=== PATIENT | female | born 1985 | race African-American/Black ===

== ENCOUNTER → 2021-03-11 14:04 | Outpatient (CLI) | payer OTHER, BC, SELFPAY ==
--- NOTE | ~2021-03-11 | US_ITS ---
EXAMINATION: US OB <= 14 weeks fetus DATE: 03/11/2021 14:22 INDICATION: Verify gestational dates TECHNIQUE: Real-time transabdominal obstetric ultrasound. FINDINGS: No prior studies for comparison. The uterus measures 12.2 x 8.1 x 10 cm. There is an intrauterine gestational sac, with pole chad ntified. The crown rump length measures 7.35 cm, which correlates with a estimated gestational age o f 13 weeks 3 days. heart tones are identified measuring 154 BPM. The ovaries are within cary l limits. No free fluid in the pelvis. IMPRESSION: 1. SL IUP with an EGA of 13 weeks, 3 days (EDC by current ultrasound of 09/13/2021). Reviewed, dictated and finalized at location A. [facility] IMPRESSION: 1. SL IUP with an EGA of 13 weeks, 3 days (EDC by current ultrasound of 09/14/19 22).
== END ==
PROVIDERS: PCP Family Medicine; Visit Provider Obstetrics & Gynecology Gynecology
DX: Z34.91 Encounter for supervision of normal pregnancy, unspecified, first trimester (principal); Z3A.13 13 weeks gestation of pregnancy
CPT/HCPCS: 76801

== ENCOUNTER 2021-06-18 16:31 | Outpatient (RCR) | payer OTHER, BC, SELFPAY ==
[2021-06-18 17:58] LABS: Hematocrit 31.5 % (37.0-47.0); Hemoglobin 10.3 g/dL (12.0-15.0)
[2021-06-18 18:24] LABS: Vitamin D 25 Hydroxy 76.2 ng/mL
[2021-06-18 18:45] LABS: HIV 1/2 Ab P24 Ag Result Negative (Negative)
[2021-06-20 15:35] LABS: Glucose 1 Hour PP 50gm Dose 156 mg/dL
== END 2021-09-16 23:59 | disposition home or self-care (01) ==
LOC: ANHLAB 16:31
PROVIDERS: PCP Family Medicine; Visit Provider Obstetrics & Gynecology Gynecology
DX: Z11.4 Encounter for screening for human immunodeficiency virus [HIV] (principal); O36.0190 Maternal care for anti-D [Rh] antibodies, unspecified trimester, not applicable or unspecified; Z3A.00 Weeks of gestation of pregnancy not specified
CPT/HCPCS: 36415; 82306; 82947; 85014; 85018; 86703; G0432

== ENCOUNTER 2021-06-20 15:25 | Outpatient (RCR) | payer OTHER, BC, SELFPAY ==
[2021-06-20] MEDS: RHO(D) IMMUNE GLOBULIN 300 MCG/2 ML SYRINGE IM (15:55)
== END 2021-09-17 23:59 | disposition home or self-care (01) ==
LOC: ANHLAB 15:25
PROVIDERS: PCP Family Medicine; Visit Provider Obstetrics & Gynecology Gynecology
DX: Z29.13 Encounter for prophylactic Rho(D) immune globulin (principal); O36.0130 Maternal care for anti-D [Rh] antibodies, third trimester, not applicable or unspecified; Z3A.00 Weeks of gestation of pregnancy not specified
CPT/HCPCS: 36415; 85461; 90384; 96372; J2790

== ENCOUNTER 2021-09-08 16:25 | Inpatient (IN) | payer OTHER, BC, SELFPAY ==
[2021-09-08] VITALS (7 sets, daily range): BP systolic 93–112; BP diastolic 50–70; PULSE 77–99; RESP 18; TEMP 36.3–36.4; BMI 33.5
--- NOTE | 2021-09-08 17:12 | LDADM ---
This patient, Mika Matias, was admitted to Labor/Delivery/Recovery 107 on 09/08/21 at 16:25. Plans for labor, pain management and were discussed with patient. Patient/family oriented to hospital policies and general routines including ID bracelet, bed and alarms, visiting hours, pain management, procedures, bathroom and other care routines, personal items, smoking policy, room service/diet and guest tray routines, security routines, and visiting hours. Patient/Family are encouraged to report perceived risks to care and to ask questions if they do not understand what they are told or what they should do. See OBIX for further documentation.
[2021-09-08 17:14] LABS: Basophils Percent Auto 0.4 % (0.2-1.2); Eosinophils Absolute Auto 0.1 K/mm3 (0-0.3); Eosinophils Percent Auto 0.7 % (0-4.4); Hemoglobin 12.8 g/dL (12.0-15.0); Immature Granulocyte Absolute 0.08 K/mm3 (0.00-0.031); Lymphocytes Absolute Auto 1.28 K/mm3 (0.9-3.2); Lymphocytes Percent Auto 15.4 % (18.3-44.2); Mean Corpuscular HGB Conc 32.8 g/dl (32-36); Mean Corpuscular Hemoglobin 27.8 pg (26-34); Mean Corpuscular Volume 84.6 fl (80-100); Mean Platelet Volume 9.9 fl (7.4-10.4); Monocytes Absolute Auto 0.6 K/mm3 (0.1-0.6); Monocytes Percent Auto 6.6 % (2.6-8.5); Neutrophils Absolute Auto 6.3 K/mm3 (1.3-6.7); Neutrophils Percent Auto 75.9 % (45.5-73.1); Platelet Count Result 221 k/mm3 (150-375); Red Blood Count 4.61 M/mm3 (4.2-5.4); Red Cell Distribution Width 14.9 % (11.5-14.5); White Blood Count 8.3 K/mm3 (4.5-10.0)
[2021-09-08] MEDS: DINOPROSTONE 10 MG VAG INSERT VAGINAL (17:32)
[2021-09-08] MEDS: CALCIUM CARBONATE (TUMS) 500 MG (200 MG ELEMENTAL) PO (18:23)
[2021-09-08 21:55] LABS: Barbiturate Screen Urine Negative (Negative); Benzodiazepines Screen Urine Negative (Negative)
[2021-09-08 22:04] LABS: Amphetamine Screen Urine Negative (Negative); Cannabinoid Screen Urine Negative (Negative); Cocaine Screen Urine Negative (Negative); Methadone Screen Urine Negative (Negative); Opiate Screen Urine Negative (Negative); Phencyclidine Screen Urine Negative (Negative)
[2021-09-09] VITALS (66 sets, daily range): BP systolic 85–119; BP diastolic 40–71; PULSE 62–116; RESP 14–18; TEMP 36.1–37.4; O2SAT 93–100
[2021-09-09] MEDS: FAMOTIDINE 20 MG TABLET PO (00:50)
[2021-09-09] MEDS: LACTATED RINGERS 1,000 ML 125 ML IV CONT ×3 (02:14→06:20)
[2021-09-09] MEDS: AMPICILLIN 2 GM/NS 100 ML 2 GM/100 ML BAG IVPB (02:15)
[2021-09-09] MEDS: fentaNYL CITRATE INJ (*CRX) 100 MCG/2 ML VIAL 50 MCG IV PUSH ×2 (02:17→02:41)
[2021-09-09] MEDS: TERBUTALINE SULFATE 1 MG/ML VIAL 0.25 MG SUB-Q (05:24)
[2021-09-09] MEDS: AMPICILLIN 1 GM/NS 50 ML 1 GM/50 ML BAG IVPB (06:18)
--- NOTE | 2021-09-09 06:43 | WPDANESEPPF ---
Anes - Initial Pre Proc Eval Procedure: Primary C section Date/Time: 09/09/21 06:43 Surgeon: Dipika Esposito MD Pre Op Diagnosis: intolerance to labor Pre Op Diagnosis: iol Patient Data Age: 36 Gender: F Height: 1.55 m Weight: 80.4 kg Last Vital Signs Temp 36.6 C 09/09/21 02:02 Pulse 92 09/09/21 06:15 Resp 18 09/09/21 02:02 BP 94/51 L 09/09/21 06:15 O2 Del Method Room Air 09/08/21 17:12 Allergies Allergy/AdvReac Type Severity Reaction Status Date / Time No Known Allergies Allergy Verified 08/13/21 15:39 Home Medications Medication Instructions Recorded Confirmed Type aspirin 81 mg tablet 81 mg PO DAILY 08/13/21 08/13/21 History ergocalciferol (vitamin D2) 1,250 1,250 mcg PO [id number] 08/13/21 08/13/21 History mcg (50,000 unit) capsule (Vitamin D2) ferrous sulfate 325 mg (65 mg 325 mg PO DAILY 08/13/21 08/13/21 History iron) tablet prenat.vits,freedom,dfa-qdwr-cxqwt 1 tablet PO DAILY 08/13/21 08/13/21 History Laboratory Tests 09/08/21 09/08/21 09/08/21 17:07 17:07 17:07 WBC 8.3 K/mm3 K/mm3 (4.5-10.0) RBC 4.61 M/mm3 M/mm3 (4.2-5.4) Hgb 12.8 g/dL g/dL (12.0-15.0) Hct 39.0 % % (37.0-47.0) MCV 84.6 fl fl (80-100) MCH 27.8 pg pg (26-34) MCHC 32.8 g/dl g/dl (32-36) RDW 14.9 % H % (11.5-14.5) Plt Count 221 k/mm3 k/mm3 (150-375) MPV 9.9 fl fl (7.4-10.4) Immature Gran % (Auto) 1.0 % H % (0-0.5) Neut % (Auto) 75.9 % H % (45.5-73.1) Lymph % (Auto) 15.4 % L % (18.3-44.2) [place] % (Auto) 6.6 % % (2.6-8.5) Eos % (Auto) 0.7 % % (0-4.4) Baso % (Auto) 0.4 % % (0.2-1.2) Lymph # (Auto) 1.28 K/mm3 K/mm3 (0.9-3.2) [place] # (Auto) 0.6 K/mm3 K/mm3 (0.1-0.6) Eos # (Auto) 0.1 K/mm3 K/mm3 (0-0.3) Baso # (Auto) 0.0 K/mm3 K/mm3 (0.0-0.1) Abs Immat Gran (auto) 0.08 K/mm3 H K/mm3 (0.00-0.031) Absolute Neuts (auto) 6.3 K/mm3 K/mm3 (1.3-6.7) Absolute Nucleated RBC 0.0 K/mm3 K/mm3 (0.0-0.012) Nucleated RBC % 0.0 % % (0.0-0.2) Urine Opiates Screen Urine Methadone Screen Ur Barbiturates Screen Ur Phencyclidine Scrn Ur Amphetamine Screen U Benzodiazepines Scrn Urine Cocaine Screen U Cannabinoids Screen RPR Pending Blood Type O Negative Antibody Screen Negative 09/08/21 21:22 WBC RBC Hgb Hct MCV MCH MCHC RDW Plt Count MPV Immature Gran % (Auto) Neut % (Auto) Lymph % (Auto) [place] % (Auto) Eos % (Auto) Baso % (Auto) Lymph # (Auto) [place] # (Auto) Eos # (Auto) Baso # (Auto) Abs Immat Gran (auto) Absolute Neuts (auto) Absolute Nucleated RBC Nucleated RBC % Urine Opiates Screen Negative (Negative) Urine Methadone Screen Negative (Negative) Ur Barbiturates Screen Negative (Negative) Ur Phencyclidine Scrn Negative (Negative) Ur Amphetamine Screen Negative (Negative) U Benzodiazepines Scrn Negative (Negative) Urine Cocaine Screen Negative (Negative) U Cannabinoids Screen Negative (Negative) RPR Blood Type Antibody Screen Patient hx anesthesia problems: none Family hx anesthesia problems: none Results Review: All pre-operative results and documents have been reviewed as part of the pre-operative evaluation. [facility] Family History Family History (Updated 08/13/21 @ 15:43 by Nicholas Green RN) Grandparent Family history of rheumatoid arthritis Breast cancer in female Congestive heart failure Prostate carcinoma Lymphoma Father Hypertension Moth
[2021-09-09] MEDS: ceFAZolin 2 GM/D5W 50 ML 2 GM/50 ML BAG IVPB (06:55)
[2021-09-09] MEDS: diphenhydrAMINE HCl INJ 50 MG/ML VIAL 25 MG IV PUSH (07:58)
--- NOTE | 2021-09-09 08:04 | W.PM.PROC2 ---
Procedure Note - Detailed Date of Procedure 09/09/21 Pre-op Diagnosis intrauterine at 39 weeks intolerance of labor Post-op Diagnosis Same Procedure Performed primary low-transverse section Surgeon Dipika Esposito MD Anesthesia Spinal Findings male infant weighing 7lb 1oz with 9 and 9 Apgars; normal-appearing tubes ovaries and uterus; nuchal cord x1 reduced Description of Procedure the patient was taken to the operating room and placed under spinal anesthesia in the dorsal supine position with a leftward tilt. The patient was prepped and draped in the usual sterile fashion. Pfannenstiel skin incision was made with a scalpel and carried down to the underlying layer of fascia which was nicked in the midline. The fascial incision was extended laterally using Jones scissors. Bleeding vessels in the subcutaneous tissue are cauterized for hemostasis. Fascial edges were grasped with Ochsner was and tented while the fascia was dissected off the muscles. The rectus muscles were in the midline and the peritoneum tented and entered with Metzenbaum. The peritoneal incision was extended with blunt traction. The bladder blade is placed and the vesicouterine peritoneum tented and entered with Metzenbaum incision was extended laterally and the bladder flap created digitally. The bladder blade is replaced. The lower uterine segment was incised with a transverse fashion with the scalpel. The incision was extended laterally with blunt traction. The membranes were ruptured during this procedure and no fluid is noted at rupture. The head is fully delivered while the sales assistants and salespersons applied fundal pressure. The was fully delivered and a small amount of fluid is noted and clear. The cord is around the neck and reduced. The cord was clamped and cut the infant handed to the waiting nursery nurse. The placenta was removed using manual traction. The uterus was cleared of all clots and debris and exteriorized. The uterine incision was closed using 0 Monocryl in a running locked fashion. Same suture was used to imbricate. Two additional xqzyuk-pt-ybyah sutures are required near the left angle. Good hemostasis was then noted. The uterus is returned to the abdomen and the pelvis irrigated. The incision was again inspected noted to be hemostatic. The fascia was closed using 0 Vicryl in a running fashion. Subcutaneous tissues were irrigated and made hemostatic using Bovie cautery. Incision was closed using 4-0 Vicryl in a subcuticular fashion. Dermaflex was placed over the incision. Sponge, needle, and instrument counts are correct per the OR staff. Patient was given Ancef prior to skin incision. Estimated Blood Loss -890.0 Urine Output -200.0 Drains Yes ( Merlos catheter) Packing No Pathology Yes ( placenta) Complications No immediate complications Condition Stable Disposition Floor
--- NOTE | 2021-09-09 08:09 | PM.OBDSVD ---
DS: Admitting Diagnosis Discharge Date 09/12/21 Admitting Diagnosis induction of labor at 39 weeks DS: Discharge Diagnosis Discharge Diagnosis (1) intolerance to labor, delivered, current hospitalization: Code(s): O77.9 - Labor and delivery complicated by stress, unspecified Status: Acute (2) 39 weeks gestation of : Code(s): Z3A.39 - 39 weeks gestation of Status: Acute OB - DS: Summary OB Procedures : Ultrasound OB Procedures Intrapartum: low cervical, transverse OB Procedures: : None Peripartum Data Delivery Method: Section Procedures: Procedures Operation Date: 09/09/21 07:00 <No data on this case meets the specified criteria> Status at Discharge Functional status at discharge: independent ambulation Overall status at discharge: patient is progressing back to baseline Time Spent with Patient Time attestation: Total time spent providing and/or coordinating discharge services: DS: Data Data Completed and Pending Labs on day of discharge: Labs from last 24 hours 09/08/21 09/08/21 09/08/21 21:22 17:07 17:07 WBC RBC Hgb Hct MCV MCH MCHC RDW Plt Count MPV Immature Gran % (Auto) Neut % (Auto) Lymph % (Auto) [place] % (Auto) Eos % (Auto) Baso % (Auto) Lymph # (Auto) [place] # (Auto) Eos # (Auto) Baso # (Auto) Abs Immat Gran (auto) Absolute Neuts (auto) Absolute Nucleated RBC Nucleated RBC % Urine Opiates Screen Negative Urine Methadone Screen Negative Ur Barbiturates Screen Negative Ur Phencyclidine Scrn Negative Ur Amphetamine Screen Negative U Benzodiazepines Scrn Negative Urine Cocaine Screen Negative U Cannabinoids Screen Negative RPR Pending Blood Type O Negative Antibody Screen Negative 09/08/21 17:07 WBC 8.3 RBC 4.61 Hgb 12.8 Hct 39.0 MCV 84.6 MCH 27.8 MCHC 32.8 RDW 14.9 H Plt Count 221 MPV 9.9 Immature Gran % (Auto) 1.0 H Neut % (Auto) 75.9 H Lymph % (Auto) 15.4 L [place] % (Auto) 6.6 Eos % (Auto) 0.7 Baso % (Auto) 0.4 Lymph # (Auto) 1.28 [place] # (Auto) 0.6 Eos # (Auto) 0.1 Baso # (Auto) 0.0 Abs Immat Gran (auto) 0.08 H Absolute Neuts (auto) 6.3 Absolute Nucleated RBC 0.0 Nucleated RBC % 0.0 Urine Opiates Screen Urine Methadone Screen Ur Barbiturates Screen Ur Phencyclidine Scrn Ur Amphetamine Screen U Benzodiazepines Scrn Urine Cocaine Screen U Cannabinoids Screen RPR Blood Type Antibody Screen Discharge Plan Discharge Attending physician on discharge: Dipika Esposito Discharging Clinician: Dipika Esposito Anticipated Discharge Date/Time: 09/12/21 08:11 Patient Disposition: Home, Self-Care Activity: may shower, may drive after 2 weeks and pelvic rest Diet: regular Wound Care Instructions: incision open to air Patient Instructions: Antibiotic Form Stand Alone Forms: General Discharge Information Follow-up/Referrals: Dipika Esposito MD [Physician] - 1 Week ( and 6 weeks) Discharge Medications: New hydrocodone-acetaminophen 5-325 mg tablet 1 tablet PO Q4H PRN (Reason: pain) Qty: 20 0RF norethindrone (contraceptive) 0.35 mg tablet 0.35 mg PO DAILY Qty: 84 3RF Continued ferrous sulfate 325 mg (65 mg iron) Tablet 325 mg PO DAILY ergocalciferol (vitamin D2) [Vitamin D2] 1,250 mcg (50,000 unit) Capsule 1,250 mcg PO [id number] #[id number] Tablet 1 tablet PO DAILY Discontinued Adult Low Dose Aspirin 81 mg Tablet 81 mg PO DAILY Date of admission: 09/08/21 16:25 Primary Care Provider: Chante,Yolette Hernandez Admitting Provider: Dipika Esposito Attending physician on admission: Dipkia Esposito Condition: Stable
[2021-09-09] MEDS: OXYTOCIN 30 UNITS/NS 500 ML 30 UNITS/500 ML BAG 125 UNITS IV CONT (08:30)
[2021-09-09 09:11] LABS: Rapid Plasma Reagin Non-Reactive (NonReactive)
--- NOTE | 2021-09-09 10:19 | OBPPTRN ---
Patient transferred to post room #283 via stretcher. Support person present. Oriented to unit, room, information board, rooming in, admission packet and security measures. Patient verbalizes understanding.
[2021-09-09] MEDS: DEXTROSE 5%/0.45% SOD CHL 1,000 ML 125 ML IV CONT (13:02)
--- NOTE | 2021-09-09 16:02 | PC.NURSE ---
Addendum entered by Susie Cano RN 09/09/21 16:10: Mother denies discomfort with latched to the right breast. Original Note: [id number] Introductions were made, then consulted with patient to assess needs related to . Mother led the conversation with her experience feeding her so far. Mother works well with her infant and is demonstrating skin to skin with her infant unwrapped and placed vertically on her chest. Reviewed responsive feeding and how to watch for early feeding signs, frequency of feeding on demand about every 8-12 times in 24 hours (every 2-3 hours), milk production, duration of feeding, signs of adequate intake/output and how to record on the feeding sheet. Mother demonstrates understanding of hand expression and nipple stretching to stimulate milk production as her infant is sleepy and reluctant to show feeding cues at this time. Resources used to facilitate learning were used with the visual handouts/ tool/mom and baby guide. Mother voiced understanding of responsive feedings, stimulating with skin to skin, hand expressed colostrum, touch, talking to to encourage if it has been 2 -3 hours since the start of the last , to call if infant does not latch or there is discomfort with . Reported to the primary RN. 1515 blood sugar resulted at 51 with primary RN. [id number] Reviewed working with , breast, nipples and how to protect the nipples with an optimal deep latch, good positioning, and good hand washing. Encouraged understanding the benefits of skin to skin, responding to feeding cues, frequencies of feeding 8-12 times in 24 hours (approximately 2-3 hours), duration of feedings, milk production, intake/output feeding sheet and signs of adequate intake encouraging swallowing at the breast. Reviewed positioning and alignment, supporting breast, off-centered (asymmetrical latch) and leading with the chin with big open wide gape. latched optimally to the right breast in football position. Education given to mother of how to visualize effective sucking with rocking motion. sucks a few times, then pauses but no swallowing seen or heard at this time. Reviewed signs that is having good intake. was able to maintain latch without discomfort to mother. Nipple care reviewed with optimal latch and good positioning. Resources used to facilitate learning were used from the visual handouts/ tool/mom and baby guide. Mother voiced understanding of the education shared, calling for assistance if the infant does not latch or if there is discomfort with . Reported to the primary RN.
[2021-09-09] MEDS: IBUPROFEN 600 MG TABLET PO (22:03)
[2021-09-09] MEDS: HYDROcodone/acetaminophen (*CRX) 5-325 MG TABLET 1 TAB PO (22:04)
[2021-09-10] MEDS: IBUPROFEN 600 MG TABLET PO ×3 (04:44→23:56)
[2021-09-10] MEDS: SIMETHICONE 80 MG TAB.CHEW PO (04:44)
[2021-09-10] MEDS: HYDROcodone/acetaminophen (*CRX) 5-325 MG TABLET 1 TAB PO ×4 (04:44→23:56)
[2021-09-10 04:50] VITALS: BP 98/59; PULSE 77; RESP 18; TEMP 37.1
[2021-09-10 05:20] LABS: Basophils Absolute Auto 0.1 K/mm3 (0.0-0.1); Basophils Percent Auto 0.4 % (0.2-1.2); Eosinophils Absolute Auto 0.1 K/mm3 (0-0.3); Eosinophils Percent Auto 0.5 % (0-4.4); Hematocrit 32.9 % (37.0-47.0); Hemoglobin 10.6 g/dL (12.0-15.0); Immature Granulocyte Absolute 0.09 K/mm3 (0.00-0.031); Immature Granulocyte Percent A 0.7 % (0-0.5); Lymphocytes Percent Auto 13.2 % (18.3-44.2); Mean Corpuscular HGB Conc 32.2 g/dl (32-36); Mean Corpuscular Hemoglobin 27.6 pg (26-34); Mean Corpuscular Volume 85.7 fl (80-100); Monocytes Absolute Auto 1.1 K/mm3 (0.1-0.6); Monocytes Percent Auto 8.6 % (2.6-8.5); Neutrophils Absolute Auto 9.3 K/mm3 (1.3-6.7); Neutrophils Percent Auto 76.6 % (45.5-73.1); Platelet Count Result 190 k/mm3 (150-375); Red Blood Count 3.84 M/mm3 (4.2-5.4); Red Cell Distribution Width 14.9 % (11.5-14.5); White Blood Count 12.2 K/mm3 (4.5-10.0)
--- NOTE | 2021-09-10 07:24 | PM.OBPNVD ---
OB - PN: Subj Subjective Date/time seen: 09/10/21 07:24 Patient comments: no complaints and pain well controlled baby status: doing well OB - PN: Obj Data Labs CBC & Chem 7: 09/10/21 04:54 Labs: Laboratory Results - last 24 hr 09/08/21 09/10/21 17:07 04:54 WBC 12.2 H RBC 3.84 L Hgb 10.6 L Hct 32.9 L MCV 85.7 MCH 27.6 MCHC 32.2 RDW 14.9 H Plt Count 190 MPV 10.0 Immature Gran % (Auto) 0.7 H Neut % (Auto) 76.6 H Lymph % (Auto) 13.2 L [place] % (Auto) 8.6 H Eos % (Auto) 0.5 Baso % (Auto) 0.4 Lymph # (Auto) 1.60 [place] # (Auto) 1.1 H Eos # (Auto) 0.1 Baso # (Auto) 0.1 Abs Immat Gran (auto) 0.09 H Absolute Neuts (auto) 9.3 H Absolute Nucleated RBC 0.0 Nucleated RBC % 0.0 RPR Non-reactive OB - PN A/P Plan day: 1 Plan: routine care Time Spent With Patient Time: Total time spent is greater than 50% in coordination of care (as documented) at patient's floor/unit and/or counseling patient: Exam Narrative: inc c/d/i : Bimanual exam- vagina & uterus: other (Uterus firm, nt @U)
[2021-09-10 08:20] VITALS: BP 93/58; PULSE 75; RESP 16; TEMP 36.7; O2SAT 99
--- NOTE | 2021-09-10 08:54 | WPDANLDPN2 ---
Anes-Prog Note L&D Date/Time: 09/10/21 08:54 Comfortable throughout: section Neuraxial method: spinal Epidural/Spinal procedure site: clean & non-tender Neuro status: Neuro function grossly intact. Cardiovascular status: normal Respiratory status: normal Airway patency: baseline Mental status: baseline Post-Op hydration status: normal Vital Signs: Last Vital Signs Temp 37.1 C 09/10/21 04:50 Pulse 77 09/10/21 04:50 Resp 18 09/10/21 04:50 BP 98/59 L 09/10/21 04:50 Pulse Ox 100 09/09/21 16:00 O2 Del Method Room Air 09/10/21 08:00 Pain score (VAS): 3 I/O: Intake & Output 09/09/21 09/10/21 09/10/21 23:59 07:59 15:59 Intake Total 2050 1200 Output Total 1750 1200 Balance 300 0 Post-procedural complaints: none Patient feedback: Patient satisfied with anesthetic care.
--- NOTE | 2021-09-10 08:54 | WPDANLDNPN2 ---
Anes-Prog Note L&D-Neuraxial Date/Time: 09/10/21 08:54 Neuraxial medications: epidural PF morphine Opiod-related complaints: none Patient feedback: Patient satisfied with post-operative pain management.
[2021-09-10] MEDS: DOCUSATE SODIUM 100 MG CAPSULE PO ×2 (12:15→17:02)
[2021-09-10] MEDS: MULTIVIT/MIN/PREN/FOL AC/IRON TABLET 1 TAB PO (12:15)
--- NOTE | 2021-09-10 13:40 | PC.NURSE ---
[id number] Mother states has not fed since 0300. Infant taken to primary RN for blood sugar test to be completed. 1130 - 1136 Consulted with patient to assess needs related to . Mother led conversation with her experience with feeding baby so far. Mother works well with her with encouragement. Reviewed working with , breast, nipples and how to protect the nipples with an optimal deep latch, good positioning, and good hand washing. Reviewed and reinforced understanding the benefits of skin to skin, responding to feeding cues, frequencies of feeding 8-12 times in 24 hours (approximately 2-3 hours), duration of feedings, milk production, intake/output feeding sheet and signs of adequate intake encouraging swallowing at the breast. Reviewed positioning and alignment, supporting breast, off-centered (asymmetrical latch) and leading with the chin with big open wide gape. latched optimally to the left breast in football position. was able to maintain latch without discomfort to mother. Nipple care reviewed with optimal latch and good positioning. Reviewed the importance of having clean hands when touching the nipple/breast as needed. Resources used to facilitate learning were used from the visual handouts/ tool/mom and baby guide. Mother voiced understanding of the education shared, calling for assistance if the does not latch or if there is discomfort with . Reported to the primary RN.
[2021-09-10] MEDS: RHO(D) IMMUNE GLOBULIN 300 MCG/2 ML SYRINGE IM (13:45)
[2021-09-10 19:00] VITALS: BP 113/67; PULSE 85; RESP 16; TEMP 36.8
[2021-09-11] MEDS: IBUPROFEN 600 MG TABLET PO ×3 (05:03→21:52)
--- NOTE | 2021-09-11 07:39 | PM.OBPNVD ---
OB - PN: Subj Subjective Date/time seen: 09/11/21 07:39 Patient comments: no complaints and pain well controlled baby status: doing well OB - PN: Obj Data Labs CBC & Chem 7: 09/10/21 04:54 Labs: Laboratory Results - last 24 hr 09/10/21 04:54 Blood Type O Negative Antibody Screen TNP Screen Negative Baby's Blood Type O pos Baby's TG Negative Doses of RhIg Required 1 OB - PN A/P Plan day: 2 Plan: routine care Time Spent With Patient Time: Total time spent is greater than 50% in coordination of care (as documented) at patient's floor/unit and/or counseling patient: Exam Narrative: inc c/d/i : Bimanual exam- vagina & uterus: other (Uterus firm, nt @U)
[2021-09-11 08:05] VITALS: BP 104/68; PULSE 83; RESP 16; TEMP 36.8; O2SAT 99
[2021-09-11] MEDS: DOCUSATE SODIUM 100 MG CAPSULE PO (08:40)
[2021-09-11] MEDS: MULTIVIT/MIN/PREN/FOL AC/IRON TABLET 1 TAB PO (08:40)
--- NOTE | 2021-09-11 09:17 | PC.NURSE ---
[phone] Mother verbalizes she breastfed infant without any nipple discomfort and is responsively . Reviewed milk production, 8-12 times in 24 hours (every 2-3 hours). Mother declines any additional assistance/education at this time. Mother is encouraged to call for assistance if her doesn?t latch or there is discomfort with latching. Mother voiced understanding of information shared and mom and baby guide reviewed for additional resource information . Reported to the primary RN Vivien.
[2021-09-11] MEDS: HYDROcodone/acetaminophen (*CRX) 5-325 MG TABLET 1 TAB PO ×2 (13:01→21:53)
[2021-09-11 19:20] VITALS: BP 110/73; PULSE 85; RESP 16; TEMP 36.9; O2SAT 100
[2021-09-12 08:00] VITALS: PULSE 96; RESP 18; O2SAT 100
[2021-09-12 08:10] VITALS: BP 117/75; PULSE 96; RESP 18; TEMP 36.6; O2SAT 100
[2021-09-12] MEDS: DOCUSATE SODIUM 100 MG CAPSULE PO (08:13)
[2021-09-12] MEDS: MULTIVIT/MIN/PREN/FOL AC/IRON TABLET 1 TAB PO (08:13)
[2021-09-12] MEDS: HYDROcodone/acetaminophen (*CRX) 5-325 MG TABLET 1 TAB PO (08:13)
[2021-09-12] MEDS: IBUPROFEN 600 MG TABLET PO (08:14)
--- NOTE | 2021-09-12 10:54 | PM.OBPNVD ---
OB - PN: Subj Subjective Date/time seen: 09/12/21 10:54 Patient comments: no complaints and pain well controlled baby status: doing well OB - PN: Obj Data Labs CBC & Chem 7: 09/10/21 04:54 Labs: Laboratory Results - last 24 hr 09/10/21 04:54 Blood Type O Negative Antibody Screen TNP Screen Negative Baby's Blood Type O pos Baby's TG Negative Doses of RhIg Required 1 OB - PN A/P Plan day: 3 Plan: routine care, discharge home, follow up 6 weeks (and 1 wk) and other (plans micronor) Time Spent With Patient Time: Total time spent is greater than 50% in coordination of care (as documented) at patient's floor/unit and/or counseling patient: Exam Narrative: inc c/d/i : Bimanual exam- vagina & uterus: other (Uterus firm, nt @U)
[2021-09-13 08:06] VITALS: BP 114/69; PULSE 91; RESP 16; TEMP 37.1; O2SAT 100
--- NOTE | 2021-09-16 10:41 | PM.IMHP ---
H&P: HPI History of Present Illness Date/Time: 09/16/21 10:41 Chief Complaint: intolerance of labor Narrative: 36-year-old 2 para 0 aborta 1 admitted at 39 weeks for medical induction of labor. She was given Cervidil overnight. The Cervidil had to be pulled due to decelerations. Was discussed with the patient and recommended to proceed with primary section. She voiced understanding and agreed to proceed. has been uncomplicated. For advanced maternal age [facility]. labs O negative; rubella immune; RPR negative; hepatitis-B surface antigen negative; group B strep +; HIV negative x2 Review of Systems Review of Systems: No complaints and reports good PMFSH Past Medical History Medical History (Updated 09/16/21 @ 10:45 by Dipika Esposito MD) Chlamydia History HPV (human papilloma virus) infection Abnormal Pap smears resulting in a procedure that she is unsure of is her teen years Trichomonas infection History Surgical History Surgical History (Updated 09/16/21 @ 10:45 by Dipika Esposito MD) History of myringotomy History of weight loss surgery 2020 gastric sleeve Family History Family History (Updated 08/13/21 @ 15:43 by Nicholas Green RN) Grandparent Family history of rheumatoid arthritis Breast cancer in female Congestive heart failure Prostate carcinoma Lymphoma Father Hypertension Mother Hypertension Social History Social History Smoking status: Never smoker Alcohol intake: never Substance use: never Spiritual care concerns: No Meds Home Medications and Allergies Home Medications Medication Instructions Recorded Confirmed Type ergocalciferol (vitamin D2) 1,250 1,250 mcg PO [id number] 08/13/21 08/13/21 History mcg (50,000 unit) capsule (Vitamin D2) ferrous sulfate 325 mg (65 mg 325 mg PO DAILY 08/13/21 08/13/21 History iron) tablet prenat.vits,freedom,rts-mgqv-jtphe 1 tablet PO DAILY 08/13/21 08/13/21 History hydrocodone 5 mg-acetaminophen 325 1 tablet PO Q4H PRN pain #20 tabs 09/11/21 Rx mg tablet norethindrone (contraceptive) 0.35 0.35 mg PO DAILY #84 tabs 09/11/21 Rx mg tablet Allergies Allergy/AdvReac Type Severity Reaction Status Date / Time No Known Allergies Allergy Verified 08/13/21 15:39 Exam Const: General: healthy appearing and alert Orientation/consciousness: patient oriented x3 GI: GI Palp: Yes Soft to palpation, No Tenderness to palpation present (GI) and Yes Other GI palpation findings present (Gravid with a fundal height of 39cm) : External Female Exam: normal external appearance Speculum Exam - Vagina: normal appearance of the vagina and normal vaginal discharge Speculum Exam - Cervix: normal appearance of the cervix Bimanual exam- vagina & uterus: consistency normal Bimanual Exam- Adnexa, other: normal adnexae and No adnexal tenderness Neuro: General: patient oriented x3 Assessment and Plan Assessment and plan (1) 39 weeks gestation of : Code(s): Z3A.39 - 39 weeks gestation of Status: Acute (2) intolerance to labor, delivered, current hospitalization: Code(s): O77.9 - Labor and delivery complicated by stress, unspecified Status: Acute Assessment and Plan: Plan of to proceed with primary
== END 2021-09-12 14:43 | disposition home or self-care (01) | DRG 788 ==
LOC: ANHLDR 09-09 08:12 → ANHOB2 09-09 10:31
PROVIDERS: Admitting Provider Obstetrics & Gynecology Gynecology; PCP Family Medicine; Visit Provider Obstetrics & Gynecology Gynecology
PROC: 10D00Z1 Extraction of Products of Conception, Low, Open Approach (ICD-10-PCS; CPT 59514; principal; 2021-09-09 07:00)
DX: O77.9 Labor and delivery complicated by fetal stress, unspecified (principal); O99.824 Streptococcus B carrier state complicating childbirth; Z37.0 Single live birth; Z3A.39 39 weeks gestation of pregnancy; O36.8330 Maternal care for abnormalities of the fetal heart rate or rhythm, third trimester, not applicable or unspecified; O69.81X0 Labor and delivery complicated by cord around neck, without compression, not applicable or unspecified
CPT/HCPCS: 36415; 80307; 85025; 85461; 86592; 86850; 86900; 86901; 88307; 90384; A9270; J0131; J0290; J0690; J1200; J1885; J2210; J2274; J2370; J2405; J2590; J2790; J3010; J3105; J7120